=== PATIENT | female | born 2000 | race Caucasian/White ===

== ENCOUNTER 2018-05-25 09:58 | Emergency (ER) | payer OTHER ==
[~2018-05-25] VITALS: Ht 167.6 cm; Wt 46.3 kg
[2018-05-25 10:01] VITALS: BP 130/79
[2018-05-25 11:30] LABS: BASOPHILS # (AUTO) 0.04 x10^3/uL (0-0.3); BASOPHILS % (AUTO) 1 % (0-1); EOSINOPHILS # (AUTO) 0.28 x10^3/uL (0-0.8); EOSINOPHILS % (AUTO) 5 % (1-7); LYMPHOCYTES # (AUTO) 2.26 x10^3/uL (1-6.1); LYMPHOCYTES % (AUTO) 42 % (22-44); MD NO; MEAN CORPUSCULAR HEMOGLOBIN 30.7 pg (27.0-34.8); MEAN CORPUSCULAR HGB CONC 33.6 g/dL (32.4-35.8); MEAN CORPUSCULAR VOLUME 91.3 fL (80-100); MEAN PLATELET VOLUME 7.8 fL (7.4-10.4); MONOCYTES # (AUTO) 0.45 x10^3/uL (0-1.4); MONOCYTES % (AUTO) 8 % (2-9); NEUTROPHILS % (AUTO) 44 % (42-75); PLATELET COUNT 315 x10^3/uL (130-400)
[2018-05-25 11:38] LABS: MICROSCOPIC INDICATED
[2018-05-25 11:39] LABS: HCG UR SG > 1.030 (1.003-1.030)
[2018-05-25 11:44] LABS: ALANINE AMINOTRANSFERASE 24 U/L (12-78); ALBUMIN 4.5 g/dL (3.4-5.0); ANION GAP 9 mmol/L (5-15); CALCIUM 9.1 mg/dL (8.5-10.1); CHLORIDE 107 mmol/L (98-107); CREATININE 0.75 mg/dL (0.55-1.02)
[2018-05-25 11:48] LABS: CULTURE INDICATED? NO
[2018-05-25 11:53] LABS: ALKALINE PHOSPHATASE 69 U/L (45-117); BILIRUBIN,TOTAL 0.6 mg/dL (0.2-1.0); T4 (THYROXINE) 10.6 mcg/dL (4.8-13.9); TOTAL PROTEIN 8.3 g/dL (6.4-8.2)
== END 2018-05-25 13:16 | disposition home or self-care (01) ==
LOC: ED 12:41
DX: R11.2 Nausea with vomiting, unspecified (principal); R63.0 Anorexia; R63.4 Abnormal weight loss; F32.9 Major depressive disorder, single episode, unspecified
CPT/HCPCS: 36415; 80053; 81001; 81025; 83690; 84436; 84443; 85025; 99283